=== PATIENT | female | born 1995 | race Hispanic/Latino ===

== ENCOUNTER 2024-10-23 18:43 | Observation (INO) | payer SELFPAY ==
[~2024-10-23] VITALS: Ht 152.4 cm; Wt 80.0 kg
--- NOTE | 2024-10-23 19:03 | NUR ---
UA CUP PROVIDED
--- NOTE | 2024-10-23 19:06 | NUR ---
UA COLLECTED AND SENT
[2024-10-23 19:24] LABS: APPEARANCE,URINE CLEAR (CLEAR); BILIRUBIN,URINE NEGATIVE (NEGATIVE); COLOR,URINE COLORLESS (YELLOW); GLUCOSE, URINE (UA) NEGATIVE (NEGATIVE); KETONES,URINE 20 mg/dL (NEGATIVE); LEUKOCYTE ESTERASE ,URINE NEGATIVE Leu/uL (NEGATIVE); NITRATE,URINE NEGATIVE (NEGATIVE); OCCULT BLOOD,URINE LARGE (NEGATIVE); PH,URINE 5.5 (5.0-8.0); PROTEIN,URINE NEGATIVE (NEGATIVE); UROBILINOGEN,URINE 0.2 mg/dL (0.2-1.0)
[2024-10-23 19:40] LABS: HCG,QUALITATIVE URINE NEGATIVE (NEGATIVE)
[2024-10-23 19:42] LABS: BACTERIA,URINE RARE /HPF (None Seen); MUCUS,URINE RARE LPF (None Seen); SQUAMOUS EPITHELIAL CELL,UR RARE /HPF (0-2)
--- NOTE | 2024-10-23 19:42 | ERN ---
General Chief Complaint: Abdominal Pain Stated Complaint: ABDOMINAL PAIN, INFLAMMATION Time Seen by MD: 18:48 Time Seen by Midlevel: 18:48 Source: patient History of Present Illness Initial Comments 28-year-old female who presents to the emergency department due to abdominal pain onset yesterday. Patient reports she feels bloated at the upper abdomen, currently on her menstrual cycle but states this feels different. Denies any nausea, vomiting, diarrhea or further associated symptoms. Denies any significant past medical history. Allergies: Coded Allergies: potassium chloride (Unverified Allergy, Unknown, 10/23/24) Past Medical History Past Medical History: Arthritis Past Surgical History: Other Surgical History Other: D AND C Female( History) LMP: Oct 23, 2024 ROS Dictation Constitutional: Negative for fever,chills, and weight loss Eyes: Negative for injury, pain,redness, and discharge ENT: Negative for injury,pain or swelling Cardiovascular: Negative for chest pain, palpitations, and edema Respiratory: Negative for shortness of breath, cough, and wheezing, Abdomen/GI: Positive for abdominal pain Negative for nausea, vomiting, diarrhea, and constipation Back: Negative for injury and pain : Negative for painful urination, bleeding or discharge MS/Extremity: Negative for injury and deformity Skin: Negative for rash, and discoloration Neuro: Negative for headache, weakness, numbness, tingling, and seizure Psych: Negative for suicide ideation, homicidal ideation, and hallucinations Physical Exam Physical Exam Dictation General: awake, alert, no acute distress Head/Face: Normocephalic, atraumatic Eyes: PERRL, EOMI, normal conjunctiva ENT: oral cavity clear, oral mucosa moist Neck: Supple, normal range of motion Cardiovascular: RRR, normal S1/S2 Respiratory: CTAB, no respiratory distress, no rales or wheezes Abdomen: Soft, right upper and lower quadrant tenderness, non-distended, normal bowel sounds Skin: Warm, dry, normal turgor, no rash MS/Extremity: Pulses equal, no cyanosis, neurovascular intact, FROM Neuro: COAx4, GCS 15, no neurological deficits, normal gait Psych: Normal behavior, mood, and affect normal Results Laboratory and Microbiology Lab and Micro Result Laboratory Tests Test 10/23/24 19:06 10/23/24 19:50 Urine Color COLORLESS (YELLOW) Urine Appearance CLEAR (CLEAR) Urine pH 5.5 (5.0-8.0) Urine Specific [place] 1.004 (1.001-1.031) Urine Protein NEGATIVE mg/dL (NEGATIVE) Urine Glucose (UA) NEGATIVE mg/dL (NEGATIVE) Urine Ketones 20 mg/dL (NEGATIVE) H Urine Occult Blood LARGE (NEGATIVE) H Urine Nitrate NEGATIVE (NEGATIVE) Urine Bilirubin NEGATIVE mg/dL (NEGATIVE) Urine Urobilinogen 0.2 mg/dL (0.2-1.0) Urine Leukocyte Esterase NEGATIVE Munir/uL Urine RBC 2-5 /HPF (0-1) H Urine WBC 6-10 /HPF (0-1) H Urine Squamous Epithelial Cells RARE /HPF (0-2) Urine Bacteria RARE /HPF (None Seen) Urine HCG, Qualitative NEGATIVE (NEGATIVE) White Blood Count 9.6 K/uL (4.8-10.8) Red Blood Count 4.89 MIL/uL (4.00-5.50) Hemoglobin 14.5 g/dL (12.0-16.0) Hematocrit 42.2 % (36-48) Mean Corpuscular Volume 86.3 fL (79-99) Mean Corpuscular Hemoglobin 29.7 pg (27.0-33.0) Mean Corpuscular Hemoglobin Concent 34.4 g/dL (32.0-36.0) Red Cell Distribution Width 12.7 % (11.0-15.5) Platelet Count 319 K/uL (130-400) Mean Platelet Volume 10.8 fL (7.5-10.5) H Immature Granulocyte % (Auto) 0.2 % (0-1) Neutrophils (%) (Auto) 60.5 % (40.0-77.0) Lymphocytes (%) (Auto) 26.2 % (21.0-51.0) Monocytes (%) (Auto) 9.0 % (3.0-13.0) Eosinophils (%) (Auto) 3.5 % (0.0-8.0) Basophils (%) (Auto) 0.6 % (0.0-5.0) Neutrophils # (Auto) 5.8 K/uL (1.8-7.7) Lymphocytes # (Auto) 2.5 K/uL (1.0-4.8) Monocytes # (Auto) 0.9 K/uL (0.1-1.0) Eosinophils # (Auto) 0.34 K/uL (0.00-0.70) Basophils # (Auto) 0.06 K/uL (0.00-0.20) Absolute Immature Granulocyte (auto 0.02 K/uL (0-1) Nucleated Red Blood Cells 0.0 % (0.0-0.19) Sodium Level 139 mmol/L (136-145) Potassium Level 4.0 mmol/L (3.5-5.1) Chloride Level 102 mmol/L (101-111) Carbon Dioxide Level 30 mmol/L (21-32) Blood Urea Nitrogen 9 mg/dL (7-18) Creatinine 0.8 mg/dL (0.5-1.0) Glomerular Filtration Rate Calc 102 mL/min (>90) Random Glucose 92 mg/dL (70-105) Total Calcium 8.8 mg/dL (8.5-10.1) Total Bilirubin 0.5 mg/dL (0.2-1.0) Direct Bilirubin 0.2 mg/dL (0.0-0.3) Aspartate Amino Transf (AST/SGOT) 18 U/L (10-37) Alanine Aminotransferase (ALT/SGPT) 30 U/L (12-78) Alkaline Phosphatase 70 U/L (50-136) Total Protein 8.0 g/dL (6.0-8.3) Albumin 3.9 g/dL (3.5-5.0) Lipase 16 U/L (16-77) Labs Reviewed?: Yes EKG/XRAY/US/CT/MRI CT Scan Comment REASON: RUQ and RLQ abdominal pain ORDERING PHYSICIAN: KRYSTLE MARIN PROCEDURE: ABD PEL W - CT ABDOMEN/PELVIS W/CONTRAST CT ABDOMEN/PELVIS W/CONTRAST HISTORY: Abdominal pain COMPARISON: None TECHNIQUE: Multiple sequential axial images of the abdomen and pelvis were obtained from the dome of the diaphragm through symphysis pubis. Patient was given 75 cc of Omnipaque through intravenous route. Oral contrast was not given. FINDINGS: No pleural effusion is seen bilaterally. There is no evidence of parenchymal disease or pulmonary nodule of the visualized lower lungs. Degenerative changes of the thoracolumbar spine are present. The heart is not enlarged. Liver measures 16 cm. The liver, spleen, adrenal glands and pancreas are unremarkable. There is no evidence of hydronephrosis bilaterally. No evidence of renal stone is seen. Fecal material is seen in the colon. There are normal size retroperitoneal and mesenteric lymph nodes. No ascites is seen. Appendix is dilated measuring 11 mm. Adjacent mesenteric fat stranding is seen. Findings are suspicious for acute appendicitis in the proper clinical setting. Pelvic sidewalls are symmetric bilaterally. Bladder is well distended without wall thickening. IMPRESSION: 1. Findings suspicious for acute appendicitis in the proper clinical setting. CT was performed with one or more following dose reduction techniques: automated exposure control, adjustment of the mA and kv according to patient's size, or use of a iterative reconstruction technique. DICTATED BY: GISELLE HYATT MD DATE: 10/23/242037 [facility] MDM: Differential diagnosis: Appendicitis, constipation, UTI, cholelithiasis Rationale: 28-year-old female who presents to the emergency department due to abdominal pain onset yesterday. Patient reports she feels bloated at the upper abdomen, currently on her menstrual cycle but states this feels different. Denies any nausea, vomiting, diarrhea or further associated symptoms. Denies any significant past medical history. Per physical examination patient is tender to palpation of the right lower and upper quadrant. Labs labs obtained no elevated WBCs, hepatic function within normal limits. UA negative for urinary tract infection. CT abdomen and pelvis obtained indicated appendix dilated at 11 mm, suspicious for acute appendicitis. Patient was initiated on Zosyn, administered fluids, and ketorolac in the ED. patient was educated on findings, diagnosis, decision for admission. Patient verbalized understanding. Patient stable for admission. General surgeon Dr. Calderon consulted who accepted admission. Previous outside records reviewed: Old ER visits. Risk of complication and/or morbidity or mortality of patient management: None Medications-Per medication reconciliation Need for hospitalization: Patient does meet criteria for hospitalization. Need for emergency major/minor surgery: No There are no social concerns with this patient. Prescription drug management Prescriptions will include symptomatic care Patient's prior external medical records from other ER visits were reviewed by me as indicated. Prior testing and results from previous visits were reviewed. Prior tests were taken into account with medical decision making and resource utilization, independent historian/historians were used to obtain complete medical history. I independently interpreted the test that were performed, results were reviewed by me and considered findings on radiology if ordered. Medical management and examination interpretation discussions were had by me with other qualified healthcare professionals as indicated for the patient's care. ED Course Orders Procedure Category Date Status Time Cbc With Differential LAB 10/23/24 Complete 19:02 Basic Metabolic Panel LAB 10/23/24 Complete 19:02 Hepatic Function Panel LAB 10/23/24 Complete 19:02 Urinalysis LAB 10/23/24 Complete W/Microscopic 19:02 ,Urine Test LAB 10/23/24 Complete 19:02 Lipase LAB 10/23/24 Complete 19:02 Ct Abdomen/Pelvis CT 10/23/24 Resulted W/Contrast 19:39 Culture Urine LAWANDA 10/23/24 Logged 19:43 Iohexol (Omnipaque) PHA 10/23/24 Complete 20:20 Zosyn 3.375gm+Ns 50ml PHA 10/23/24 Logged (Zosyn 3.375gm+Ns 21:00 Ketorolac PHA 10/23/24 Logged Tromethamine 30mg/Ml 21:00 Ns 1000ml Bolus PHA 10/23/24 Verified 21:00 Current Medications Medications (Trade) Dose Ordered Sig/Kang Route PRN Reason Start Time Stop Time Status Last Admin Dose Admin Iohexol (Omnipaque) 75 ml STK-MED ONCE IV 10/23/24 20:20 10/23/24 20:21 DC Piperacillin Sod/ Tazobactam Sod (Zosyn 3.375gm+NS 50ml) 3.375 gm ONCE ONCE IV 10/23/24 21:00 10/23/24 21:01 UNV Vital Signs Date Time Temp Pulse Resp B/P (MAP) Pulse Ox O2 Delivery O2 Flow Rate FiO2 10/23/24 18:58 96.3 85 16 114/80 100 Room Air DX & DISP Disposition: Inpatient Decision to Admit Date: Oct 23, 2024 Departure Impression: Primary Impression: Acute appendicitis Condition: Stable Referrals: SELF,REFERRAL (PCP) I performed the substantive portion of the visit. I have reviewed and personally made and approve the management plan that is documented in the notes by myself or the SO. I acknowledge full responsibility for the patient's management plan. KRYSTLE MARIN Oct 23, 2024 19:42
--- NOTE | 2024-10-23 19:43 | NUR ---
PENDING GFR & TEST RESULTS, IV SITE, & CONSENT FOR CT EXAM.
[2024-10-23 20:07] LABS: BASOPHILS # (AUTO) 0.06 K/uL (0.00-0.20); BASOPHILS % (AUTO) 0.6 % (0.0-5.0); EOSINOPHILS # (AUTO) 0.34 K/uL (0.00-0.70); EOSINOPHILS % (AUTO) 3.5 % (0.0-8.0); HEMATOCRIT 42.2 % (36-48); IMMATURE GRANULOCYTE ABSOLUTE 0.02 K/uL (0-1); LYMPHOCYTES # (AUTO) 2.5 K/uL (1.0-4.8); LYMPHOCYTES % (AUTO) 26.2 % (21.0-51.0); MEAN CORPUSCULAR HEMOGLOBIN 29.7 pg (27.0-33.0); MEAN CORPUSCULAR HGB CONC 34.4 g/dL (32.0-36.0); MEAN CORPUSCULAR VOLUME 86.3 fL (79-99); MONOCYTES # (AUTO) 0.9 K/uL (0.1-1.0); NEUTROPHILS # (AUTO) 5.8 K/uL (1.8-7.7); NEUTROPHILS % (AUTO) 60.5 % (40.0-77.0); PLATELET COUNT (AUTO) 319 K/uL (130-400); RED BLOOD CELL COUNT(AUTO) 4.89 MIL/uL (4.00-5.50); RED CELL DISTRIBUTION WIDTH 12.7 % (11.0-15.5); WHITE BLOOD COUNT (AUTO) 9.6 K/uL (4.8-10.8)
[2024-10-23 20:16] LABS: CREATININE 0.8 mg/dL (0.5-1.0)
[2024-10-23 20:20] LABS: ALBUMIN 3.9 g/dL (3.5-5.0); BILIRUBIN,DIRECT 0.2 mg/dL (0.0-0.3); BILIRUBIN,TOTAL 0.5 mg/dL (0.2-1.0)
[2024-10-23] MEDS ORDERED: IOHEXOL-350 75 ML VIAL IV ONE (20:20)
--- NOTE | 2024-10-23 20:44 | HMCIMG ---
CT ABDOMEN/PELVIS W/CONTRAST HISTORY: Abdominal pain COMPARISON: None TECHNIQUE: Multiple sequential axial images of the abdomen and pelvis were obtained from the dome of the diaphragm through symphysis pubis. Patient was given 75 cc of Omnipaque through intravenous route. Oral contrast was not given. FINDINGS: No pleural effusion is seen bilaterally. There is no evidence of parenchymal disease or pulmonary nodule of the visualized lower lungs. Degenerative changes of the thoracolumbar spine are present. The heart is not enlarged. Liver measures 16 cm. The liver, spleen, adrenal glands and pancreas are unremarkable. There is no evidence of hydronephrosis bilaterally. No evidence of renal stone is seen. Fecal material is seen in the colon. There are normal size retroperitoneal and mesenteric lymph nodes. No ascites is seen. Appendix is dilated measuring 11 mm. Adjacent mesenteric fat stranding is seen. Findings are suspicious for acute appendicitis in the proper clinical setting. Pelvic sidewalls are symmetric bilaterally. Bladder is well distended without wall thickening. IMPRESSION: 1. Findings suspicious for acute appendicitis in the proper clinical setting. CT was performed with one or more following dose reduction techniques: automated exposure control, adjustment of the mA and kv according to patient's size, or use of a iterative reconstruction technique.
[2024-10-23] MEDS ORDERED: ketOROlac 30MG VIAL (30MG/ML) IVP ONE (21:00)
[2024-10-23] MEDS: 0.9%NACL 1000ML 1,000 ML IV ONE (21:16)
[2024-10-23] MEDS: ZOSYN 3.375GM +NS 50ML IV ONE (21:16)
[2024-10-23] MEDS ORDERED: [UNRECOGNIZED DRUG - OTHER] IV SCH (21:30)
[2024-10-23] MEDS ORDERED: CEFAZOLIN SODIUM IV SCH (21:30)
[2024-10-23] MEDS ORDERED: morPHINE 2 MG SYG IVP PRN (21:30)
[2024-10-23] MEDS ORDERED: acetaMINOPHEN 500 MG TABLET PO PRN (21:30)
[2024-10-23] MEDS: ceFAZolin SODIUM 2 GM VIAL IVPB SCH (23:05)
[2024-10-23] MEDS: ceFAZolin SODIUM 2 GM VIAL ONE (23:06)
--- NOTE | 2024-10-23 23:22 | NUR ---
ATTEMPTED TO CALL REPORT AT THIS TIME. NURSE STATED SHE WOULD CALL BACK IS CURRENTLY OCCUPIED WITH ANOTHER PATIENT.
[2024-10-24] VITALS (24 sets, daily range): BP systolic 92–141; BP diastolic 40–79; PULSE 64–103; RESP 15–20; TEMP 97.3–98.4; O2SAT 99
--- NOTE | 2024-10-24 00:53 | NUR ---
Patient offered pain medication multiple times and stated she did not want any pain medication and her pain is tolerable.
--- NOTE | 2024-10-24 01:40 | NUR ---
RECEIVED REPORT FROM SIRIA BRITO. PATIENT BIB STRETCHER FROM ER. PATIENT ALERT, ORIENTED, AND ABLE TO MAKE NEEDS KNOWN. PATIENT ORIENTED TO CALL LIGHT AND UNIT FALL POLICIES. PATIENT'S AT BEDSIDE AT THIS TIME.
[2024-10-24] MEDS ORDERED: ETAN50PE3 SQ (01:43)
[2024-10-24] MEDS ORDERED: ondanSETRON 4MG INJ ONE (07:57)
[2024-10-24] MEDS ORDERED: MIDAZOLAM HCL 1 MG/ML 2ML VIAL ONE (07:57)
[2024-10-24] MEDS ORDERED: rocuRONium bROMide 10MG/1ML 5ML VL ONE (07:57)
[2024-10-24] MEDS ORDERED: ketOROlac 30MG VIAL (30MG/ML) ONE ×2 (07:57→08:49)
[2024-10-24] MEDS ORDERED: ROPivacaine 0.5% 5MG/ML 30ML ONE ×2 (07:57→08:03)
[2024-10-24] MEDS ORDERED: SUCCINYLCHOLINE CHLORIDE 20 MG/ML 10 ML VIAL ONE (07:57)
[2024-10-24] MEDS ORDERED: dexaMETHasone SOD PHOSPHATE 4 MG/ML 1ML VIAL ONE (07:57)
[2024-10-24] MEDS ORDERED: LIDOCAINE PF 100MG/5ML (2%) SYRINGE 5ML ONE (07:57)
[2024-10-24] MEDS ORDERED: proPOFol 10 MG/ML 20ML VIAL IV ONE (07:57)
[2024-10-24] MEDS ORDERED: FENTanyl CITRate PF 50 MCG/1 ML 2ML VIAL ONE ×2 (07:58→09:20)
[2024-10-24] MEDS ORDERED: ACET-2079 PO (08:22)
[2024-10-24] MEDS ORDERED: ceFAZolin SODIUM 1 GM VIAL ONE (08:37)
[2024-10-24] MEDS ORDERED: GLYCOPYRROLATE 0.2 MG/ML 5 ML VIAL ONE (08:49)
[2024-10-24] MEDS ORDERED: NEOSTIGMINE METHYLSULFATE 1MG/ML IV ONE (08:49)
[2024-10-24] MEDS ORDERED: phenylEPHRINE HCL 10 MG/ML 1ML VIAL IV ONE (08:55)
[2024-10-24] MEDS: BUPIvacaine/PF 0.5% 30ML VIAL ONE (09:14)
--- NOTE | 2024-10-24 09:28 | PRN ---
OPERATIVE REPORT DATE OF SERVICE: [ ] PREOPERATIVE DIAGNOSIS: Acute appendicitis. POSTOPERATIVE DIAGNOSIS: Acute appendicitis. PROCEDURE PERFORMED: Laparoscopic appendectomy. ESTIMATED BLOOD LOSS: Minimal. SPECIMEN: Appendectomy. ANESTHESIA: General. DESCRIPTION OF PROCEDURE: The patient was given preoperative antibiotics, was prepped and draped in normal sterile fashion. Incision was made for 1 cm in the umbilicus, bluntly dissected to the fascia. A Veress needle with negative aspiration and free flow of fluids insufflated to 15 mL of water using CO2 and a 10 mm trocar placed within. The remaining trocars, a 10 mm in the left lower quadrant and a 5-mm in the suprapubic area were placed under direct visualization. The appendix was noted to be acutely inflamed and this was grasped with an Allis. The mesentery was no kurtis to be inflamed as well. The base of the appendix was dissected The base of the appendix was doubly tied with endo loops around the base and clipped distally. The mesentery was divided between clips and amputated. The appendix was then removed, placed in Endobag and brought out through the lateral port. Trocars were replaced. The area was irrigated, hemostasis ensured. The trocars were replaced. The larger incisions were closed with interrupted Vicryl sutures. Rachel and Marcaine were used for the skin. The patient tolerated procedure. VANDANA MACKEY MD Oct 24, 2024 09:28
[2024-10-24] MEDS ORDERED: morPHINE 2 MG SYG IV PRN (09:30)
[2024-10-24] MEDS: PANTOPrazole 40 MG/VIAL IVP SCH (11:35)
[2024-10-24] MEDS: 0.9%NACL 1000ML 1,000 ML IV SCH (11:35)
--- NOTE | 2024-10-24 16:47 | NUR ---
note pt discharged at this time, pt iv dc, pt tolerated diet no n/v or abdominal cramping
--- NOTE | 2024-10-25 20:34 | HP ---
HISTORY OF PRESENT ILLNESS: The patient is a 28-year-old female complaining of abdominal pain the day prior to admission. The patient's pain is now in the right lower quadrant. CAT scan is consistent with acute appendicitis. The patient is here for appendectomy. PAST MEDICAL HISTORY: As above. PAST SURGICAL HISTORY: D and C. ALLERGIES: SHE IS ALLERGIC TO POTASSIUM CHLORIDE. PHYSICAL EXAMINATION: GENERAL: The patient is awake, alert and oriented. She is in no acute distress. VITAL SIGNS: She is afebrile. Vital signs are stable. CHEST: Clear. HEART: Regular rate and rhythm. ABDOMEN: Tender with localized guarding, but no rebound in the right lower quadrant. She has positive bowel sounds. EXTREMITIES: Show no edema. LABORATORY DATA: White count is 9.6, hematocrit 42, platelets of 319. SMA-7 is unremarkable. Beta hCG is negative. CAT scan of the abdomen, finding suspicious for acute appendicitis. PLAN: Laparoscopic appendectomy. TID: [id number] RECEIPT: [id number]
== END 2024-10-24 18:00 | disposition home or self-care (01) ==
LOC: EDH 18:43 → INTOOBSV 18:44 → EDHIP 18:44 → 3BH 10-24 01:20
PROVIDERS: ADMIT Specialist; ATTEND Specialist
DX: K35.80 Unspecified acute appendicitis (principal); R14.0 Abdominal distension (gaseous); M19.90 Unspecified osteoarthritis, unspecified site; Z88.8 Allergy status to other drugs, medicaments and biological substances; Z98.890 Other specified postprocedural states; Z79.899 Other long term (current) drug therapy
CPT/HCPCS: 96365; 96366 ×2; 96367; 99285; 80076; 80048; 83690; 85025; 87086; 81001; 81025; 36415; 74177; 44970; 96375; 88304; J2543; Q9967; J0690 ×2; G0378 ×8; J7030; A4600; A4215; J3010 ×2; J0330; J3490 ×2; J2003; J2250; J2704; J2405; J1885 ×2; J2710; J0665; J2470; J1100; J2795; J2371; A6206; A4649 ×3